=== PATIENT | male | born 1955 | race Caucasian/White ===

== ENCOUNTER 2020-08-27 22:22 | Emergency (ER) | payer OTHER ==
[~2020-08-27] VITALS: Ht 185.4 cm; Wt 99.8 kg
[2020-08-27 23:31] LABS: URINE BILIRUBIN NEGATIVE (Negative); URINE BLOOD NEGATIVE (Negative); URINE CLARITY CLEAR; URINE COLOR YELLOW; URINE GLUCOSE-RANDOM* NEGATIVE (Negative); URINE KETONES NEGATIVE (Negative); URINE LEUKOCYTES-REFLEX NEGATIVE (Negative); URINE NITRITE-REFLEX NEGATIVE (Negative); URINE PROTEIN (DIPSTICK) NEGATIVE (Negative); URINE UROBILINOGEN 0.2 E.U./dl (0.2-1.0)
[2020-08-27 23:39] LABS: AMP/METHAMP Negative (Negative); BARBITURATES Negative (Negative); BENZODIAZEPINES Negative (Negative); COCAINE Negative (Negative); METHADONE Negative (Negative); OPIATES Negative (Negative); PCP Negative (Negative)
[2020-08-27 23:44] LABS: ABSOLUTE NEUTROPHILS 2.5 thou/uL (1.4-8.2); EOSINOPHILS 2.1 % (0.0-3.0); HEMATOCRIT 37.2 % (42.0-52.0); HEMOGLOBIN 12.6 gm/dL (14.0-18.0); LYMPHOCYTES 33.7 % (24.0-44.0); MCH 32.7 pg (26.0-34.0); MCHC 33.8 g/dL (28.0-37.0); MCV 96.9 fL (80.0-100.0); MONOCYTES 10.6 % (1.0-8.0); PLATELET COUNT 187 thou/uL (150-400); POLYS 52.6 % (36.0-66.0); RBC 3.84 mil/uL (4.50-6.00); RDW 14.4 % (10.5-14.5); WBC 4.7 thou/uL (4.0-11.0)
[2020-08-27 23:50] LABS: ANION GAP 9 mmol/L (7-16); BUN 12 mg/dL (7-18); CHLORIDE 105 mmol/L (98-107); CO2 27 mmol/L (21-32); CREATININE 0.7 mg/dL (0.7-1.3); GLUCOSE 217 mg/dL (74-106); POTASSIUM 3.5 mmol/L (3.5-5.1); SODIUM 141 mmol/L (136-145)
[2020-08-27 23:56] LABS: ALBUMIN 3.3 g/dL (3.4-5.0); SALICYLATE < 2.8 mg/dL (2.8-20.0); SGOT 25 U/L (15-37); SGPT 27 U/L (30-65); TOTAL BILIRUBIN 0.2 mg/dL (0.2-1.0); TOTAL PROTEIN 7.3 g/dL (6.4-8.2)
[2020-08-28 04:21] VITALS: BP 148/81
--- NOTE | 2020-08-28 07:49 | EKG ---
[facility] [place] [address] ELECTROCARDIOGRAM REPORT Name: FELICIANOAHMET Room #: DEP [facility].#: [id number] Admission: 08/27/20 Attend Phys: Discharge: 08/28/20 Date of : [birth year] Report #: [id number] THIS REPORT FOR: cc: [facility] - Clinic physician unknown [facility] - Clinic physician unknown Phi Velasquez MD [facility] ~ THIS REPORT FOR: //name// [facility] ED Test Date: 2020-08-27 Test Time: 22:36:44 Pat Name: AHMET WIGGINS Department: Room: Gender: Human Resources Operations Manager: : 1954-01-22 Requested By: Demetrius Don Order Number: [id number] MD: Phi Velasquez Measurements Intervals [place] Rate: 92 P: 31 MO: 169 QRS: -29 QRSD: 92 T: 42 QT: 378 QTc: 468 Interpretive Statements Sinus rhythm poor R wave progression no previous ECG available for comparison Electronically Signed On 08-28-2020 7:49:11 ENTERPRISE SYSTEMS ADMINISTRATOR by Phi Velasquez [email or web address] <ELECTRONICALLY SIGNED> By: Phi Velasquez MD, [facility] 08/28/20 0749 [id number] 35 Phi Velasquez MD, FACC /EPI
[2020-08-28] MEDS ORDERED: METFORMIN HCL500 M3 PO (09:47)
[2020-08-28] MEDS ORDERED: LISINOPRIL-HCT1 EAC2 PO (09:49)
[2020-08-28] MEDS ORDERED: LISINOPRIL2.5 MG PO (09:51)
[2020-08-28] MEDS ORDERED: HYDROCHLOROTHIA25 M2 PO (09:51)
== END 2020-08-28 04:46 | disposition still patient (30) ==
LOC: ER 22:22 → EDBD 22:22 → ER 08-28 04:46
PROVIDERS: Emergency Medicine
DX: R45.851 Suicidal ideations (principal); F10.129 Alcohol abuse with intoxication, unspecified; Z20.828 Contact with and (suspected) exposure to other viral communicable diseases; Y90.6 Blood alcohol level of 120-199 mg/100 ml

== ENCOUNTER 2020-08-28 04:36 | Inpatient (IN) | payer OTHER ==
[~2020-08-28] VITALS: Ht 177.8 cm; Wt 100.2 kg
--- NOTE | 2020-08-28 06:28 | NUR ---
Arrived on the floor @ 0500 from [facility] Emergency Department, transferred x3 staff from [facility] to bed 518A. Sedated and uncooperated, 221.4 pound weight to transfer.
[2020-08-28 09:30] VITALS: BP 153/87
[2020-08-28] MEDS ORDERED: METFORMIN HCL500 M3 PO (09:47)
[2020-08-28] MEDS ORDERED: LISINOPRIL-HCT1 EAC2 PO (09:49)
[2020-08-28] MEDS ORDERED: HYDROCHLOROTHIA25 M2 PO (09:51)
[2020-08-28] MEDS ORDERED: LISINOPRIL2.5 MG PO (09:51)
[2020-08-28 10:12] LABS: FOLIC ACID 13.1 ng/mL (8.6-58.9); TSH 0.869 uIU/mL (0.358-3.740)
--- NOTE | 2020-08-28 10:19 | NUR ---
WOUND CONSULT NOT NEEDED. THE CONSULT WAS ENTERED IN ERROR. NO WOUNDS PER RN TODAY AT 1049
--- NOTE | 2020-08-28 11:47 | NUR ---
SW attempted to complete the psychosocial with the Pt. Pt unable to complete due to falling in and out of sleep. SW will try again later.
--- NOTE | 2020-08-28 13:49 | NUR ---
0700 ASSUMED CARE OF PATIENT, PATIENT IN BED SLEEPING AT THAT TIME. PATIENT AWAKES WITH NAME CALLED THEN FALLS ASLEEP QUICKLY. CIWA PROTOCOL IN PLACE WITH ASSESSMENT FLOWSHEET STARTED. PATIENT SCORING A 0 ON CIWA FLOWSHEET AT THIS TIME. 0830 PATIENT OUT TO DAYROOM FOR BREAKFAST. PATIENT ATE 100% OF MEAL THEN ASKS FOR EXTRA EGGS AND SOME OATMEAL, PATIENT ATE 100% OF THAT. AM MEDICATION REFUSED, STATES "I DO NOT NEED THAT". AFTER BREAKFAST PATIENT SHOWERED PER HIS REQUEST. PATIENT DENIES PAIN, DIZZINESS, MAURICE, NAUSEA, VOMITING. PATIENT INDEPENDANT WITH CARES. PATIENT TO ROOM AFTER SHOWER AND SLEEPS IN BED. PATIENT ATE 100% OF LUNCH. NOON MEDICATION TAKEN WITHOUT DIFFICULTY. BS AT 730 145 AND AT 1130 179. PATIENT AMB WELL WITH STEADY GAIT. [facility] IN [facility] CALLED, OBTAINED MEDICATION LIST AND MED LIST UPDATED. PATIENT STATES EX- IS DPOA, AFTER SPEAKING TO HER SHE IS NOT HIS HEALTH CARE DPOA. PATIENT RETURNS TO ROOM TO SLEEP. Q1 HR VS COMPLETE AT THSI TIME. CONTINUES TO SCORE 0 ON CIWA FLOWSHEET. WILL CONTINUE TO OBSERVE.
--- NOTE | 2020-08-28 16:53 | NUR ---
PATIENT IS CALM AND COOPERATIVE, AT TIMES DEMANDING STATING "I NEED MY NICOTINE PATCH AND IF NOT I AM LEAVING NOW". PATIENT BS 210 AT 1640 [facility] CALLED AND ORDER RECIEVED FOR INSULIN THIS EVENING.
--- NOTE | 2020-08-28 17:57 | NUR ---
PATIENT SITTING IN RETA CHAIR WITH LEGS ELEVATED. PATIENT TO BR MULTIPLE TIMES. VOIDED WITHOUT DIFFICULTY 8+ TIMES. PATIENT LE NOTED WITH DECREASED EDEMA COMPARED TO THIS AM. PATIENT STATES "MY FEET FEEL BETTER ALREADY". PATIENT HAS BEEN TOLD NOT TO ENTER FRIDGE AND GRAB FOOD AND MUST ASK A STAFF MEMBER FOR SNACKS. ENTRY TABLE OPERATOR FOUND PEANUT BUTTER AND CRAKERS IN HIS BED. WILL CONTINUE TO OBSERVE.
[2020-08-28 19:27] VITALS: BP 148/62
--- NOTE | 2020-08-28 19:59 | NUR ---
Assumed care on 08/28/20 @ 19:15, seated in a stan chair in the day room, reclining and watching tv, with a tray of food sitting next to him. A&O x 4. Answers assessment questions with dark humor. Reports sweating and feet are hot, so he removed his socks. Reports anxiety when other patients call out. When asked if he is seeing or hearing anything frightening, he responds that "the movie I'm watching is scary". Denies headache, Denies tremors. Attempts to ambulate bare footed, and was redirected to only walk with socks on to keep his feet clean. Cooperates with taking famotadine, does ask what the medication name is and what it's purpose is. Will continue to monitor q 12 minutes for patient safety.
[2020-08-28 20:20] VITALS: BP 148/62
[2020-08-29 00:06] LABS: GLYCOHEMOGLOBIN (HGB A1C) 8.1 % (4.8-5.6)
--- NOTE | 2020-08-29 01:22 | NUR ---
PATIENT HAS BEEN UP AND DOWN FROM ROOM TO RECLINER IN DINING ROOM. HE SLEEPS IN RECLINER AND WALKS BACK TO ROOM TO USE THE BATHROOM WHEN HE NEEDS TOO. AT 0100 PATIENT TOLD THE BASKET SORTER THAT HE WANTED TO USE THE PHONE TO CALL HIS BROTHER. SHE STATED TO HIM THAT THERE'S NO CALL OUTS AFTER 2100. PATIENT TOLD HER SHE BETTER LET HIM USE THE PHONE BECAUSE THAT IS HIS RIGHT. BASKET SORTER WALKED AWAY TO COME TELL THIS NURSE. PATIENT IN MEANTIME FELL ASLEEP IN RECLINER. PATIENT IS IMPULSIVE BUT HAS BEEN COOPERATIVE FOR MOST PART. PATIENT JUST WALKED BACK TO ROOM TO TRY AND SLEEP. PT CONTINUES ON CIWA NOW AT EVERY 8 HOURS. CONTINUING TO MONITOR.
--- NOTE | 2020-08-29 03:51 | NUR ---
PATIENT UP AT THIS TIME AND REQUESTED TO TAKE A SHOWER. PATIENT WITH C/O DRY COUGH AND NOW IS HAVING A SNEEZING FIT. PATIENT IS PLEASANT AND COOPERATIVE. HE IS COMPLAINING OF THE DRY AIR HERE. ACTIONSCRIPT DEVELOPER MONITORING PATIENT DURING SHOWER FOR SAFETY. CLEAN CLOTHES BEING PUT ON FOR THE DAY. CONTINUING TO MONITOR.
[2020-08-29 04:18] VITALS: BP 144/79
[2020-08-29 07:19] VITALS: BP 158/80
--- NOTE | 2020-08-29 16:16 | NUR ---
0700 ASSUMED CARE OF PATIENT, PATIENTIN ROOM AWAKE AT THAT TIME. PATIENT OUT TO DAYROOM WITH COFFE IN HAND. PATIENT IS CALM AND COOPERATIVE. PATIENT EATS 100% OF MEALS. PATIENT LS CLEAR, BS ACTIVE, A&O X4. PATIENT TALKES MEDICATION WHOLE WITHOUT DIFFICULTY. ATTENDS SOME GROUPS. WILL CONTINUE TO OBSERVE
[2020-08-29 19:42] VITALS: BP 148/78
--- NOTE | 2020-08-29 23:14 | NUR ---
Care assumed of patient at 1915: Patient seated in dayroom, watching TV at start of shift. Calm, pleasant and cooperative. Alert and oriented x4. Communicating appropriately with staff and peers. Denies SI/HI/AH/VH. States all circumstances leading to admission was a misunderstanding. Reports depression rated 5/10, denies anxiety. Patient was making bizarre statements about how he needed to get home because all of his garage sale items were in the yard and now they are wet, but if his employees moved all his stuff in the back room, it will be unorganized and he won't have time to re-organize it before going to [place]. Stating his brother and sister are in [place] and they are surgeons for backs and he tries out their herbal regimens as a guinea pig. Patient states that his Nicotine patch came off in the shower this afternoon and he requested another one. 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 Order obtained for one time dose and to resume normal schedule in the AM. Patient reported back pain rated 5/10 and requested Tylenol. Patient took medications whole without difficulty. Patient able to retire to bed and was able to sleep for approximately 1 hour without issue. Patient did report a rash to his beny area. Skin assessed. No redness, open areas or rash observed. Patient was provided barrier ointment. Patient woke up around 2300 making several demands, raising voice at nurse. 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 Educated patient that he would need to speak with the doctor tomorrow and that it was too late to use the phone. Patient then demanded to speak to security. Security notified and arrived on unit. Patient was calm, cooperative with security male staff. Educated on hours to use the phone from 8:30am to 8:30pm and to speak with MD tomorrow. Patient accepting of this education from male security staff. Patient has since apologized. Requested 4 envelopes and paper to be able to write letters to brothers and sisters. Currently writing letters in dayroom at this time.
--- NOTE | 2020-08-30 09:26 | NUR ---
0700 ASSUMED CARE OF PATIENT, PATIENT NOTED AMB IN GARCIA AND SITTING IN DAYROOM. PATIENT ATE 100% OF MEAL. TAKES MEDICATION WHOLE WITHOUT DIFFICULTY. NICOTINE PATCH APPLIED AND TEGADERM APPLIED OVER IT TO KEEP INPLACE PATIENT APPLIES LOTS OF LOTION. PATIENT REQUESTING COPIES OF CHART AND STATES "I NEED TO BE ABLE TO GIVE SOME INFORMATION TO MY BROTHER THAT LIVES IN [place]". PATIENT CALLS BROTHER THIS AM. PRESENT IN GROUP THIS AM. WILL CONTINUE TO OBSERVE
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
[2020-08-30 19:54] VITALS: BP 138/72
[2020-08-30 20:06] LABS: SYPHILIS AB Non Reactive (Non Reactive)
[2020-08-30 20:31] VITALS: BP 138/72
--- NOTE | 2020-08-30 22:16 | NUR ---
PATIENT HAS BEEN UP IN DINING ROOM THIS EVENING WATCHING A MOVIE WITH OTHER PEERS CALLED THE KAREEN YADAV. HE HAS BEEN A/0X4. HE USED THE PHONE TWICE THIS EVENING AND SPOKE WITH HIS SISTER AND EX . HE HAS BEEN CALM. HE STATES HE WAS TOLD BY THE DOCTOR THAT IF HIS TEST RESULTS COME BACK GOOD THAT HE CAN GO HOME SOON. HE IS LOOKING FORWARD TO THIS. HE HAD HS SNACK. HE DENIES PAIN, SI/HI/AVH. PT HAS 1-2+ EDEMA IN BLE'S. HE AMBULATES ON HIS OWN AND IS STEADY. HE HAD HS SNACK AND WAS SOCIAL WITH OTHER PATIENTS. WILL CONTINUE TO ASSESS FOR SAFETY AND STATUS OF PATIENT.
--- NOTE | 2020-08-31 06:26 | NUR ---
PATIENT GOT UP AT 0445 AND REQUESTED BATH. PATIENT TOOK BATH AND STATES IT HELPED HIS BACK FEEL WELL. HE STATES HE FEELS REFRESHED. PATIENT TURNED IN HIS BREAKFAST REQUEST. HE HAS BEEN PLEASANT AND COOPERATIVE. HE DID REQUEST NAMES OF HIS DOCTORS TODAY. IN HIS MIND HE IS PREPARING TO LEAVE TODAY. TOLD HIM IT HAS TO BE CLEARED WITH THE DOCTOR. NO SI/HI/AVH. PATIENT UP IN DINING ROOM AT THIS TIME TO GET COFFEE. CONTINUING TO MONITOR.
[2020-08-31 07:30] VITALS: BP 138/83
--- NOTE | 2020-08-31 13:04 | NUR ---
Alert and orientated X4. Calm, cooperative and compliant. Interactive with peers and staff. Denies SI/HI. Breath sounds clear. Reg HR auscultated. Color pink with brisk capillary refill and palpable peripheral pulses. Minimal edema in feet. Independent with voiding. Active bowel sounds over soft, rounded abdomen. Last documented BM yesterday. Reg steady gait without s/o distress. Pt. focused on discharge plan, states he has rented car and was told he could leave as soon as he is cleared by Dr. De La O. Tylenol given for tooth pain on R side of mouth. Pain resolved with medication. Currently participating in group.
--- NOTE | 2020-08-31 13:38 | NUR ---
MIGUEL contacted pt's ex- Sapphire to ask about his daughter January; pt is reporting that his daughter his willing to come pick him up and care for him. SW did not receive an answer. MIGUEL left a msg. SW team will continue to follow pt during his stay on this unit.
[2020-08-31 19:40] VITALS: BP 129/74
--- NOTE | 2020-09-01 04:49 | NUR ---
Assumed care of pt @ 1900. Pt calm et cooperative this shift. Took medications whole without difficulty. Ambulates the halls ad kirstie with steady gait. Socialized with peers in dayroom until HS. VSWNL. Health assessment with no abnormalities noted at present time. Denies SI/HI/AVH at present time. Currently resting in bed with eyes open. Will continue to monitor per unit protocol.
[2020-09-01 06:17] LABS: HEMATOCRIT 41.2 % (42.0-52.0); HEMOGLOBIN 13.6 gm/dL (14.0-18.0); MCH 32.7 pg (26.0-34.0); RBC 4.16 mil/uL (4.50-6.00); RDW 14.7 % (10.5-14.5); WBC 7.9 thou/uL (4.0-11.0)
[2020-09-01 06:36] LABS: CALCIUM 9.5 mg/dL (8.5-10.1); CREATININE 0.8 mg/dL (0.7-1.3); MAGNESIUM 1.7 mg/dL (1.8-2.4); POTASSIUM 3.7 mmol/L (3.5-5.1)
[2020-09-01 09:04] VITALS: BP 160/87
--- NOTE | 2020-09-01 12:23 | NUR ---
0715- ACCEPTED CARE OF PATIENT FROM 7P-7A SHIFT.PT IS UP AMB WITHOUT ASSIST. STEADY GAIT.ASKS FOR COFFEE. EATS 100% OF BREAKFAST. QUESTIONS WHAT MEDS HE TAKES. DENIES SI/HI AT THIS TIME.WILL RECIEVE AUGUSTINA SPENCER TO PUT ON. TRACE EDEMA IN ANKLES. PT STATES THEY HURT BUT FOR NOW ITS 11/29.
--- NOTE | 2020-09-01 14:14 | NUR ---
PT INSTRUCTED ON IF HE HAS A BM TO GO IN SUPPLIED HAT FOR COLLECTION FOR JACLYN FOR OCCULT BLOOD. PT GIVEN PRUNE JUICE FOR C/O NO BM.
[2020-09-01] MEDS ORDERED: LISINOPRIL2.5 MG PO (14:57)
[2020-09-01] MEDS ORDERED: ASPIR 8181 MG PO (14:57)
[2020-09-01] MEDS ORDERED: MAGOX 400400 MG PO (14:58)
[2020-09-01] MEDS ORDERED: RISPERDAL 1 MG T1 MG PO (14:58)
[2020-09-01] MEDS ORDERED: PEPCID20 MG PO (14:58)
[2020-09-01] MEDS ORDERED: GLUCOPHAGE1000 MG PO (14:59)
[2020-09-01] MEDS ORDERED: B-12500 MCG PO (14:59)
[2020-09-01] MEDS ORDERED: PRENATAL PO (15:00)
[2020-09-01 15:51] VITALS: BP 160/87
--- NOTE | 2020-09-01 16:59 | NUR ---
1615-PT IS DISCHARGED FROM [facility]. AMBULATORY WITH STAFF TO ER FOR TAXI. DISCHARGE INSTRUCTIONS GIVEN AND SCRIPTS AND BELONGINGS GIVEN TO PATIENT, DISCHARGE SUMMARY SIGNED.PRINT OUTS OF MEDS GIVEN TO PATIENT.
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
== END 2020-09-01 16:15 | disposition home or self-care (01) | DRG 57 ==
LOC: SBH 04:36 → EDBD 04:36 → SBH 09-01 16:15
PROVIDERS: Internal Medicine; ADMIT Psychiatry & Neurology Psychiatry; ATTEND Psychiatry & Neurology Psychiatry
DX: G31.84 Mild cognitive impairment of uncertain or unknown etiology (principal); R45.851 Suicidal ideations; E44.0 Moderate protein-calorie malnutrition; F21 Schizotypal disorder; I10 Essential (primary) hypertension; M54.9 Dorsalgia, unspecified; E11.9 Type 2 diabetes mellitus without complications; K21.9 Gastro-esophageal reflux disease without esophagitis; F90.9 Attention-deficit hyperactivity disorder, unspecified type; F43.10 Post-traumatic stress disorder, unspecified; F10.21 Alcohol dependence, in remission; F29 Unspecified psychosis not due to a substance or known physiological condition; F32.9 Major depressive disorder, single episode, unspecified; Z68.31 Body mass index [BMI] 31.0-31.9, adult
CPT/HCPCS: 10880